=== PATIENT | male | born 1965 | race Two or more races ===

== ENCOUNTER 2022-08-10 19:44 | Emergency (ER) | payer OTHER ==
[~2022-08-10] VITALS: Ht 170.2 cm; Wt 72.6 kg
--- NOTE | 2022-08-10 20:56 | NUR ---
PT TAKEN TO CT VIA [facility]
[2022-08-10] MEDS ORDERED: ACETAMINOPHEN ES 500 MG TABLET PO ONE (21:00)
--- NOTE | 2022-08-10 21:18 | NUR ---
PT RETURNED TO ER BED [address]
[2022-08-10] MEDS ORDERED: ACETAMINOPHEN ES 500 MG TABLET ONE (22:09)
[2022-08-10] MEDS ORDERED: IBUP-1953 PO (22:28)
[2022-08-10] MEDS ORDERED: TYL2T PO (22:28)
--- NOTE | 2022-08-10 22:48 | NUR ---
Patient discharged to home in stable condition. Written and verbal after care instructions given. Patient verbalizes understanding of instruction.
[2022-08-10 22:49] VITALS: BP 142/75
== END 2022-08-10 22:48 | disposition home or self-care (01) ==
LOC: ER 19:46
DX: D16.21 Benign neoplasm of long bones of right lower limb (principal); R10.13 Epigastric pain; R10.30 Lower abdominal pain, unspecified; M54.50 Low back pain, unspecified; Z79.1 Long term (current) use of non-steroidal anti-inflammatories (NSAID); V89.2XXA Person injured in unspecified motor-vehicle accident, traffic, initial encounter; Y93.89 Activity, other specified; Y92.89 Other specified places as the place of occurrence of the external cause; Y99.8 Other external cause status
CPT/HCPCS: 71250-TC; 73564-TC